=== PATIENT | female | born 1970 | race Caucasian/White ===

== ENCOUNTER 2018-02-06 08:36 | Emergency (ER) | payer BC ==
[~2018-02-06] VITALS: Ht 5486.4 cm; Wt 2.4 kg
--- NOTE | 2018-02-06 08:40 | NUR ---
PT IS IN ROOM #2A. DR CUNNINGHAM EVALUATED THE PT.
[2018-02-06] MEDS ORDERED: KETAMINE HCL 500 MG/10 ML INJ IV ONE ×2 (09:00→10:15)
[2018-02-06] MEDS ORDERED: ONDANSETRON IV *ER 4 MG/2 ML VIAL IV ONE (09:00)
[2018-02-06] MEDS ORDERED: ONDANSETRON 4 MG/2 ML VIAL ONE (09:10)
[2018-02-06] MEDS ORDERED: KETAMINE HCL 500 MG/10 ML INJ ONE ×2 (09:10→10:19)
[2018-02-06 10:52] VITALS: BP 126/66
--- NOTE | 2018-02-06 10:52 | NUR ---
PT WAS D/C TO HOME. D/C INSTRUCTIONS GIVEN TO THE PT.
== END 2018-02-06 10:53 | disposition home or self-care (01) ==
LOC: EDBD 08:36 → ER 08:36
DX: S22.41XA Multiple fractures of ribs, right side, initial encounter for closed fracture (principal); S09.90XA Unspecified injury of head, initial encounter; Z90.710 Acquired absence of both cervix and uterus; Z88.2 Allergy status to sulfonamides; Z88.8 Allergy status to other drugs, medicaments and biological substances; W22.01XA Walked into wall, initial encounter; Y93.89 Activity, other specified; Y92.89 Other specified places as the place of occurrence of the external cause; Y99.8 Other external cause status
CPT/HCPCS: 70450; 71250; 72125; A4663; J2405; J3490; J7030